=== PATIENT | female | born 1960 | race Caucasian/White ===

== ENCOUNTER 2018-05-02 12:41 | Emergency (ER) | payer OTHER ==
[2018-05-02 12:56] VITALS: BP 116/70; PULSE 65; RESP 20; TEMP 97.9
--- NOTE | 2018-05-02 13:49 | ED ---
General Adult HPI - General Chief complaint: Headache Stated complaint: HEADACHE, NUMBNESS IN HANDS AND ARMS Time Seen by Provider: 05/02/18 13:17 Source: patient, RN notes reviewed Mode of arrival: ambulatory Limitations: no limitations - History of Present Illness Initial comments: Patient's a 58-year-old female presenting to the emergency room today with multiple complaints. She does admit that she's had headaches typically located on the right side behind the eye that she's been experiencing since 2005. Patient also admits that she's had some joint pains to her thumbs bilaterally also down into the left toe. She also admits that at times she's experiencing pain to the hips bilaterally. She does admit that these joint pains are worse with certain movements. She states she has seen the family doctor was for yearly physical. States she's on vitamins and supplements but no other medications. She states that she has had blood work obtained in all of her numbers usually come back normal. She does admit that she is going through a recent divorce. She states that her daughter who is a nurse thought that she should come to be evaluated today because she has been experiencing these symptoms. Patient states that all the symptoms are chronic been going on for several years there is nothing different or new. She does admit that she's tried to see a therapist she believes similar to stress-related she's going through a recent divorce. She denies any other complaints or symptoms. Denies any suicidal or homicidal thoughts or plans. Patient denies any recent fever, chills, shortness of breath, chest pain, back pain, abdominal pain, nausea or vomiting, visual changes, or any other complaints. - Related Data Home Medications Medication Instructions Recorded Confirmed Cholecalciferol [Vitamin D3] 1,000 unit PO DAILY 05/02/18 05/02/18 Folic Acid 1 mg PO DAILY 05/02/18 05/02/18 Menopause 1 tab PO DAILY 05/02/18 05/02/18 [place] 1 tab PO DAILY 05/02/18 05/02/18 [place]-3 Fatty Acids/Fish Oil [Fish 1 cap PO DAILY 05/02/18 05/02/18 Oil 1,000 mg Softgel] Turmeric Root Extract [Turmeric] 500 mg PO DAILY 05/02/18 05/02/18 Allergies Allergy/AdvReac Type Severity Reaction Status Date / Time amoxicillin Allergy Rash/Hives Verified 05/02/18 13:16 Penicillins Allergy Rash/Hives Verified 05/02/18 13:16 Review of Systems ROS Statement: Those systems with pertinent positive or pertinent negative responses have been documented in the HPI. ROS Other: All systems not noted in ROS Statement are negative. Past Medical History Past Medical History: No Reported History History of Any Multi-Drug Resistant Organisms: None Reported Past Surgical History: No Surgical Hx Reported Past Psychological History: No Psychological Hx Reported Smoking Status: Never smoker Past Alcohol Use History: Occasional Past Drug Use History: None Reported General Exam - General Exam Comments Initial Comments: General: The patient is awake and alert, in no distress, and does not appear acutely ill. Eye: Pupils are equal, round and reactive to light, extra-ocular movements are intact. No nystagmus. There is normal conjunctiva bilaterally. No signs of icterus. Ears, nose, mouth and throat: There are moist mucous membranes and no oral lesions. Neck: The neck is supple, there is no tenderness or JVD. Cardiovascular: There is a regular rate and rhythm. No murmur, rub or gallop is appreciated. Respiratory: Lungs are clear to auscultation, respirations are non-labored, breath sounds are equal. No wheezes, stridor, rales, or rhonchi. Musculoskeletal: Normal ROM, no tenderness. Strength 5/5. Sensation intact. Pulses equal bilaterally 2+. Neurological: A&O x 3. CN II-XII intact, There are no obvious motor or sensory deficits. Coordination appears grossly intact. Speech is normal. Skin: Skin is warm and dry and no rashes or lesions are noted. Psychiatric: Cooperative, appropriate mood & affect, normal judgment. Limitations: no limitations Course Vital Signs 05/02/18 12:54 Temperature 97.9 F Pulse Rate 65 Respiratory 20 Rate Blood Pressure 116/70 O2 Sat by Pulse 99 Oximetry Medical Decision Making - Medical Decision Making Patient's blood work reviewed. Patient reexamined shows no signs of distress. She presents emergency room today with headaches, joint pains that it been ongoing for several years. He does admit to recent divorce. She does admit that she feels is some this is stress related. She denies any suicidal or homicidal thoughts or plans. She is open to the idea of counseling. She states that she has been trying to get into counseling herself with some of the numbers were disconnected. Was discussed with the patient about staying here to be evaluated by one of the psych nurses. She states she currently needs to be somewhere and a half an hour does not have time to stay but is open to taking the numbers that she can call and follow up outpatient. She states she will return to emergency room if any symptoms of her stress for depression increase or worsen. Patient also be given information to follow-up with a neurologist as she states these headaches have been present for over 10 years. - Lab Data Result diagrams: 05/02/18 13:41 05/02/18 13:41 Lab Results 05/02/18 05/02/18 05/02/18 Range/Units 13:41 13:41 Unknown WBC 10.9 H (3.8-10.6) k/uL RBC 4.95 (3.80-5.40) m/uL Hgb 15.7 (11.4-16.0) gm/dL Hct 48.3 H (34.0-46.0) % MCV 97.4 (80.0-100.0) fL MCH 31.6 (25.0-35.0) pg MCHC 32.5 (31.0-37.0) g/dL RDW 12.2 (11.5-15.5) % Plt Count 260 (150-450) k/uL Neutrophils % 66 % Lymphocytes % 27 % Monocytes % 3 % Eosinophils % 2 % Basophils % 0 % Neutrophils # 7.2 (1.3-7.7) k/uL Lymphocytes # 3.0 (1.0-4.8) k/uL Monocytes # 0.3 (0-1.0) k/uL Eosinophils # 0.2 (0-0.7) k/uL Basophils # 0.0 (0-0.2) k/uL Sodium 138 (137-145) mmol/L Potassium 4.7 (3.5-5.1) mmol/L Chloride 109 H (98-107) mmol/L Carbon Dioxide 25 (22-30) mmol/L Anion Gap 4 mmol/L BUN 15 (7-17) mg/dL Creatinine 0.73 (0.52-1.04) mg/dL Est GFR (CKD-EPI)AfAm >90 (>60 ml/min/1.73 sqM) Est GFR (CKD-EPI)NonAf >90 (>60 ml/min/1.73 sqM) Glucose 95 (74-99) mg/dL Calcium 8.9 (8.4-10.2) mg/dL Total Bilirubin 0.6 (0.2-1.3) mg/dL AST 37 H (14-36) U/L ALT 40 (9-52) U/L Alkaline Phosphatase 52 (38-126) U/L Total Protein 5.7 L (6.3-8.2) g/dL Albumin 3.4 L (3.5-5.0) g/dL TSH 2.150 (0.465-4.680) mIU/L Urine Color Colorless Urine Appearance Clear (Clear) Urine pH 5.0 (5.0-8.0) Ur Specific [place] 1.002 (1.001-1.035) Urine Protein Negative (Negative) Urine Glucose (UA) Negative (Negative) Urine Ketones Negative (Negative) Urine Blood Small H (Negative) Urine Nitrite Negative (Negative) Urine Bilirubin Negative (Negative) Urine Urobilinogen <2.0 (<2.0) mg/dL Ur Leukocyte Esterase Large H (Negative) Urine RBC 3 (0-5) /hpf Ur Squamous Epith Cells 3 (0-4) /hpf Amorphous Sediment Rare H (None) /hpf Urine Bacteria Occasional H (None) /hpf Urine Mucus Few H (None) /hpf Disposition Clinical Impression: Headache Disposition: HOME SELF-CARE Condition: Good Instructions: Acute Headache (ED) Additional Instructions: Please follow-up with neurology/family doctor in the next 2 days of symptoms have not improved. Please return to emergency room if the symptoms increase or worsen or for any other concerns. Is patient prescribed a controlled substance at d/c from ED?: No Referrals: Bandar Cisneros MD [Primary Care Provider] - 1-2 days Theo Pepe MD [STAFF PHYSICIAN] - 1-2 days Time of Disposition: 15:05
[2018-05-02 13:54] LABS: Basophils % (A) 0 %; Eosinophils # (A) 0.2 k/uL (0-0.7); Eosinophils % (A) 2 %; HCT 48.3 % (34.0-46.0); HGB 15.7 gm/dL (11.4-16.0); Lymphocytes % (A) 27 %; MCH 31.6 pg (25.0-35.0); MCHC 32.5 g/dL (31.0-37.0); MCV 97.4 fL (80.0-100.0); Mean Platelet Volume 5.7; Monocytes # (A) 0.3 k/uL (0-1.0); Monocytes % (A) 3 %; Neutrophils # (A) 7.2 k/uL (1.3-7.7); Neutrophils % (A) 66 %; Platelet Count 260 k/uL (150-450); RBC 4.95 m/uL (3.80-5.40); RDW 12.2 % (11.5-15.5); WBC 10.9 k/uL (3.8-10.6)
[2018-05-02 14:05] LABS: ALT 40 U/L (9-52); AST 37 U/L (14-36); Albumin 3.4 g/dL (3.5-5.0); Alkaline Phosphatase 52 U/L (38-126); Anion Gap 4 mmol/L; Blood Urea Nitrogen 15 mg/dL (7-17); Calcium 8.9 mg/dL (8.4-10.2); Carbon Dioxide 25 mmol/L (22-30); Chloride 109 mmol/L (98-107); Glucose 95 mg/dL (74-99); Potassium 4.7 mmol/L (3.5-5.1); Sodium 138 mmol/L (137-145); Total Bilirubin 0.6 mg/dL (0.2-1.3); Total Protein 5.7 g/dL (6.3-8.2)
[2018-05-02 15:01] LABS: Amorphous Sediment,Urine Rare /hpf; Appearance,Urine Clear (Clear); Bacteria,Urine Occasional /hpf; Bilirubin,Urine Negative (Negative); Blood,Urine Small (Negative); Color,Urine Colorless; Glucose,Urine (UA) Negative (Negative); Ketones,Urine Negative (Negative); Leukocyte Esterase,Urine Large (Negative); Mucus,Urine Few /hpf; Nitrite,Urine Negative (Negative); Protein,Urine Negative (Negative); RBC,Urine 3 /hpf (0-5); Specific Gravity,Urine 1.002 (1.001-1.035); Squamous Epithelial Cell,Urine 3 /hpf (0-4); Urobilinogen,Urine <2.0 mg/dL (<2.0)
== END 2018-05-02 15:13 | disposition home or self-care (01) ==
LOC: EC 12:41
DX: R51 Headache (principal); R20.2 Paresthesia of skin; Z88.0 Allergy status to penicillin
CPT/HCPCS: 36415; 80053; 81001; 84443; 85025; 87086; 99284

== ENCOUNTER 2018-05-16 11:25 | Emergency (ER) | payer OTHER ==
[2018-05-16] MEDS ORDERED: KETOROLAC 30 MG/ML 1 ML VIAL IM STA (11:55)
--- NOTE | 2018-05-16 12:10 | ED ---
General Adult HPI - General Chief complaint: Headache Stated complaint: migraines/joint pain Time Seen by Provider: 05/16/18 11:44 Source: patient, RN notes reviewed, old records reviewed Mode of arrival: ambulatory Limitations: no limitations - History of Present Illness Initial comments: 58-year-old female presenting for evaluation of headache. Headache is chronic, she's had this headache for years. Unchanged in character. She was seen in the emergency department within the past month had laboratory testing and was referred to neurology. She has not followed with neurology. Denies focal numbness or weakness. Denies vision changes. She has had intermittent musculoskeletal complaints including right shoulder pain, right knee pain. Denies vomiting or diarrhea. Denies photophobia. Patient has not had imaging of her brain in the past. She is quite healthy, normally takes only herbal remedies for her symptoms. Not currently on any medication. Patient has been dealing with a divorce and believes that depression may be contributing to her symptoms. - Related Data Home Medications Medication Instructions Recorded Confirmed Cholecalciferol [Vitamin D3] 1,000 unit PO DAILY 05/02/18 05/16/18 Folic Acid 1 mg PO DAILY 05/02/18 05/16/18 Menopause 1 tab PO DAILY 05/02/18 05/16/18 [place] 1 tab PO DAILY 05/02/18 05/16/18 [place]-3 Fatty Acids/Fish Oil [Fish 1 cap PO DAILY 05/02/18 05/16/18 Oil 1,000 mg Softgel] Turmeric Root Extract [Turmeric] 500 mg PO DAILY 05/02/18 05/16/18 Allergies Allergy/AdvReac Type Severity Reaction Status Date / Time amoxicillin Allergy Rash/Hives Verified 05/16/18 11:49 Penicillins Allergy Rash/Hives Verified 05/16/18 11:49 Review of Systems ROS Statement: Those systems with pertinent positive or pertinent negative responses have been documented in the HPI. ROS Other: All systems not noted in ROS Statement are negative. Past Medical History Past Medical History: No Reported History History of Any Multi-Drug Resistant Organisms: None Reported Past Surgical History: No Surgical Hx Reported Past Psychological History: No Psychological Hx Reported Smoking Status: Never smoker Past Alcohol Use History: Occasional Past Drug Use History: None Reported General Exam Limitations: no limitations General appearance: alert, in no apparent distress Head exam: Present: atraumatic, normocephalic Eye exam: Present: normal appearance, PERRL, EOMI ENT exam: Present: normal exam Neck exam: Present: normal inspection. Absent: tenderness, meningismus Respiratory exam: Present: normal lung sounds bilaterally. Absent: respiratory distress Cardiovascular Exam: Present: regular rate, normal rhythm GI/Abdominal exam: Present: soft. Absent: distended, tenderness Extremities exam: Present: normal inspection, normal capillary refill. Absent: calf tenderness Neurological exam: Present: alert, oriented X3, CN II-XII intact, normal gait. Absent: motor sensory deficit Psychiatric exam: Present: normal affect, normal mood Skin exam: Present: warm, dry, intact. Absent: cyanosis, diaphoretic Course Vital Signs 05/16/18 11:35 Temperature 98.2 F Pulse Rate 92 Respiratory 16 Rate Blood Pressure 121/78 O2 Sat by Pulse 100 Oximetry - Reevaluation(s) Reevaluation #1: 05/16/18 13:14 Patient reevaluated, resting comfortably, pain improved Medical Decision Making - Medical Decision Making 58 -year-old female with chronic headache. Patient very well-appearing, stable vitals, nonfocal neurologic exam. Given the length of duration of her headache , 13 imaging in the emergency department, negative for intracranial hemorrhage, negative for mass effect, no acute findings. Patient has been given referral for outpatient neurology regarding her symptoms. She will continue with this plan. She does not want any blood testing or urine testing. Disposition Clinical Impression: Headache Disposition: HOME SELF-CARE Condition: Good Instructions (If sedation given, give patient instructions): Acute Headache (ED ) Is patient prescribed a controlled substance at d/c from ED?: No Referrals: None,Stated [Primary Care Provider] - 1-2 days Robert Rocha DO [STAFF PHYSICIAN] - 1-2 days Time of Disposition: 13:15
--- NOTE | 2018-05-16 12:24 | CT ---
EXAMINATION TYPE: CT brain wo con DATE OF EXAM: 05/16/2018 COMPARISON: None INDICATION: Migraines, joint pain DLP: 1087.4 mGycm, Automated exposure control for dose reduction was used. CONTRAST: None CT of the brain is performed utilizing 3 mm thick sections through the posterior fossa and 3 mm thick sections through the remaining calvarium. Study is performed within 24 hours of arrival to the hosp [facility]. No abnormal hyperdensity is present to suggest an acute intracranial hemorrhage. No mass lesion is evident. No acute infarcts are evident. Ventricles and sulci are appropriate for the patient age. Paranasal sinuses and mastoid air cells within the [id number] are clear. IMPRESSIONS: 1. Normal CT Brain
[2018-05-16 13:30] VITALS: BP 120/75; PULSE 85; RESP 18; TEMP 98.8
== END 2018-05-16 13:31 | disposition home or self-care (01) ==
LOC: EC 11:25
DX: R51 Headache (principal); M25.511 Pain in right shoulder; M25.562 Pain in left knee; F32.9 Major depressive disorder, single episode, unspecified; Z79.899 Other long term (current) drug therapy; Z88.0 Allergy status to penicillin
CPT/HCPCS: 70450; 99284; 96372; J1885

== ENCOUNTER → 2019-04-02 | Outpatient (CLI) | payer OTHER ==
--- NOTE | 2019-04-02 14:05 | CONS ---
CONSULTATION DATE OF SERVICE: 04/02/2019 A 58-year-old lady who has been evaluated in the [facility] for excessive daytime sleepiness, awakenings from sleep several times with snoring. HISTORY OF PRESENT ILLNESS/SLEEP-WAKE EVALUATION: Patient's usual sleep schedule on weekdays from about 1 am until 8:30 am and on weekends from about midnight until 8:30 am. She does have problem with falling asleep. She usually reads in her bedroom. She would prefer to sleep on the side or stomach position trying not to sleep on the back because she feels that her throat may be closed while she goes to the back position. She wakes up from sleep several times with 1 episode of nocturia, positive history of grinding teeth, dry mouth. During the day, she has tiredness and sleepiness, but usually cannot take any naps. Ramsey Sleepiness Scale is 12. PAST MEDICAL HISTORY: Positive for supraventricular tachycardia. PAST SURGICAL HISTORY: Cardiac ablation, procedure for SVT. MEDICATIONS: None. REVIEW OF SYSTEMS: Awakenings from sleep, tiredness during the day. SOCIAL HISTORY: Negative for smoking or using alcohol. FAMILY HISTORY: Positive for hypertension, hyperlipidemia, fibromyalgia, sinus problems, sleep apnea, snoring, cancer, insomnia, acid reflux, thyroid problems, restless legs, scleroderma, rheumatoid arthritis. PHYSICAL EXAM: lady without distress, BP 113/64, HR 60, RR 16, height 5 and 4, weight 129, body mass index 22.1, temperature 98.2, oxygen saturation at room air 95%. OROPHARYNX: Low position of soft palate, Mallampati 4. Some restriction of nasal breathing; possibly nasal septum deviation. Neck 14 inches in circumference. NECK: Supple, no JVD. Thyroid is not palpable. LUNGS: Clear to percussion and to auscultation. Good air exchange. No wheezing or rhonchi. HEART: S1, S2 regular. No murmurs, gallops, or rubs. ABDOMEN: Soft and nontender. Bowel sounds are present. No organomegaly appreciated. EXTREMITIES: No clubbing or cyanosis. PRINTING SIGN MACHINE OPERATOR: Awake, alert, and oriented X3. Cranial nerves 2 to 7 intact. There is no fasciculation or atrophy. noted. No focal deficits observed. IMPRESSION: 1. Snoring, multiple awakenings from sleep, excessive daytime sleepiness. Low position of soft palate, Mallampati 4, restriction of nasal breathing. Possible obstructive sleep apnea-hypopnea syndrome. 2. Snoring. 3. History of supraventricular tachycardia. 4. Status post cardiac ablation procedure for supraventricular tachycardia. 5. Some restriction of nasal breathing, slight asymmetry of the nose, possible nasal septum deviation. PLAN: 1. Polysomnography for evaluation of patient's breathing during sleep. 2. CPAP/BiPAP titration if sleep study confirms obstructive sleep apnea-hypopnea syndrome. 3. Preferable position during sleep on the side. 4. No driving if patient feels any sleepiness. 5. I will see patient for follow up visit to explain results of testing and following plan. Thank you very much for referring this patient for consultation. Sincerely, Cecilio Parikh MD, PhD, FAASM Diplomat of [place] [employer] [place] [employer] Professional [facility] [place] MMODL / DEANN: [id number] /
== END ==
LOC: SLEEP 12:59
PROVIDERS: ATTEND Internal Medicine
DX: G47.10 Hypersomnia, unspecified (principal); J98.8 Other specified respiratory disorders; Z86.79 Personal history of other diseases of the circulatory system; Z98.890 Other specified postprocedural states
CPT/HCPCS: 99211

== ENCOUNTER → 2020-06-29 | Outpatient (CLI) | payer OTHER ==
--- NOTE | 2020-07-06 10:59 | P.ARTDOP ---
Arterial Doppler LOWER EXTREMITY ARTERIAL DOPPLER: DATE OF SERVICE: 06/29/2020 Reason for study: Bilateral foot numbness. Doppler waveforms: Multiphasic bilaterally throughout. Pulse volume recording: []. Pressure gradients: None. Ankle-brachial indices: Greater than 1 bilaterally. Toe brachial indices: 0.76 on the right, 0.75 on the left Impression: Normal study.
== END | disposition home or self-care (01) ==
LOC: RADUSWWP 13:00
PROVIDERS: ATTEND Internal Medicine
DX: M79.661 Pain in right lower leg (principal); M79.662 Pain in left lower leg; Z88.0 Allergy status to penicillin; Z88.1 Allergy status to other antibiotic agents
CPT/HCPCS: 93922